=== PATIENT | female | born 1975 | race Caucasian/White ===

== ENCOUNTER 2023-02-01 13:00 | Inpatient (IN) | payer OTHER ==
[2023-01-30 13:45] VITALS: BMI 24.5
[2023-02-08] MEDS ORDERED: GABAPENTIN 300 MG CAPSULE ONE (11:44)
[2023-02-08] MEDS ORDERED: PHENAZOPYRIDINE HCL 100 MG TABLET (FP) ONE (11:44)
[2023-02-08] MEDS ORDERED: ceFAZolin SODIUM 1 GM VIAL ONE (11:45)
[2023-02-08] MEDS ORDERED: PROPOFOL 20 ML ONE (12:56)
[2023-02-08] MEDS ORDERED: ROCURONIUM BROMIDE 50 MG/5 ML SYRINGE ONE (12:56)
[2023-02-08] MEDS ORDERED: MIDAZOLAM HCL 2 MG/2 ML SINGLE DOSE VIAL ONE (12:56)
[2023-02-08] MEDS ORDERED: BUPIVACAINE LIPOSOME/PF (EXPAREL) 266 MG/20 ML VIAL ONE (12:58)
[2023-02-08] MEDS ORDERED: BUPIVACAINE HCL/PF 0.25% (2.5MG/ML) 10 ML VIAL ONE (12:58)
[2023-02-08] MEDS ORDERED: TRANEXAMIC ACID 1000 MG/10 ML VIAL IVPUSH ONE (13:00)
[2023-02-08] MEDS ORDERED: CEFAZOLIN 2 GM in DEXTROSE 5%-WATER - 100 ML IVPB ONE (13:00)
[2023-02-08] MEDS ORDERED: ACETAMINOPHEN 1000 MG/100 ML BAG IVPB ONE (13:00)
[2023-02-08] MEDS ORDERED: GABAPENTIN 300 MG CAPSULE PO ONE (13:00)
[2023-02-08] MEDS ORDERED: PHENAZOPYRIDINE HCL 100 MG TABLET (FP) PO ONE (13:00)
[2023-02-08] MEDS ORDERED: ceFAZolin SODIUM 1 GM VIAL IVPB ONE (13:50)
[2023-02-08] MEDS ORDERED: TRANEXAMIC ACID 1000 MG/10 ML VIAL ONE (13:57)
[2023-02-08] MEDS ORDERED: HYDROmorphone HCl 2 MG/ML VIAL ONE (15:07)
[2023-02-08] MEDS ORDERED: NEOSTIGMINE METHYLSULFATE 0.5 MG/1 ML - 10 ML MDV ONE (15:35)
[2023-02-08] MEDS ORDERED: GLYCOPYRROLATE 0.2 MG/1 ML VIAL ONE (15:35)
[2023-02-08] MEDS ORDERED: ONDANSETRON 4 MG/2 ML VIAL ONE (15:35)
[2023-02-08] MEDS ORDERED: KETOROLAC TROMETHAMINE 30 MG/1 ML VIAL IVPUSH PRN (16:04)
[2023-02-08] MEDS: ACETAMINOPHEN 1000 MG/100 ML BAG IVPB SCH ×2 (16:23→21:57)
[2023-02-08] MEDS ORDERED: ACETAMINOPHEN INJECTION 100 ML IVPB ONE (16:45)
[2023-02-08] MEDS ORDERED: oxyCODONE HCL 5 MG TABLET PO PRN (17:22)
[2023-02-08] MEDS: SODIUM CHLORIDE 1,000 ML IV SCH (19:15)
[2023-02-08] MEDS: DOXYCYCLINE INJECTION 100 MG in DEXTROSE 5%-WATER 100 ML IVPB SCH (22:12)
[2023-02-08 22:49] VITALS: RESP 18
[2023-02-09] MEDS: ACETAMINOPHEN 1000 MG/100 ML BAG IVPB SCH ×4 (04:34→22:36)
[2023-02-09] MEDS: SODIUM CHLORIDE 1,000 ML IV SCH ×2 (06:00→17:44)
[2023-02-09 08:34] LABS: HEMATOCRIT 31.1 % (32.4-45.2); HEMOGLOBIN 10.4 GM/dL (10.7-15.3); MCH 30.9 pg (25.7-33.7); MCHC 33.5 g/dl (32.0-36.0); MEAN CELL VOLUME 92.3 fl (80-96); MEAN PLT VOLUME 8.7 fl (7.5-11.1); PLATELET COUNT 155 10^3/uL (134-434); RBC 3.37 M/mm3 (3.60-5.2); RDW 13.8 % (11.6-15.6); WHITE BLOOD COUNT 10.9 K/mm3 (4.0-10.0)
[2023-02-09] MEDS: DOXYCYCLINE INJECTION 100 MG in DEXTROSE 5%-WATER 100 ML IVPB SCH ×2 (09:17→22:55)
[2023-02-09] MEDS: ENOXAPARIN NA (PORCINE) 40 MG/0.4 ML DISP.SYRIN SQ SCH (09:18)
[2023-02-09 11:41] LABS: HIV INTERPRETATION NEGATIVE (NEGATIVE)
[2023-02-09] MEDS ORDERED: METOCLOPRAMIDE HCL INJECTION 10 MG/2 ML VIAL IVPUSH PRN (17:23)
[2023-02-10] MEDS: ACETAMINOPHEN 1000 MG/100 ML BAG IVPB SCH ×3 (04:28→15:33)
[2023-02-10] MEDS: SODIUM CHLORIDE 1,000 ML IV SCH (04:31)
[2023-02-10 08:30] VITALS: BP 98/54; PULSE 100; TEMP 98.5
[2023-02-10] MEDS ORDERED: ONDANSETRON 4 MG/2 ML VIAL IVPUSH PRN (08:45)
[2023-02-10] MEDS ORDERED: IRON SUCROSE INJECTION 200 MG in SODIUM CHLORIDE 90 ML IVPB ONE (08:59)
[2023-02-10] MEDS: DOXYCYCLINE INJECTION 100 MG in DEXTROSE 5%-WATER 100 ML IVPB SCH (09:27)
[2023-02-10] MEDS: ENOXAPARIN NA (PORCINE) 40 MG/0.4 ML DISP.SYRIN SQ SCH (09:31)
== END 2023-02-10 17:23 | disposition home or self-care (01) | DRG 519 ==
LOC: J2C 02-08 05:27 → J3W 02-08 19:47
PROVIDERS: ADMIT Obstetrics & Gynecology; ATTEND Obstetrics & Gynecology
PROC: 0UB90ZZ Excision of Uterus, Open Approach (ICD-10-PCS; principal; 2023-02-08 13:00)
DX: D25.9 Leiomyoma of uterus, unspecified (principal); N92.0 Excessive and frequent menstruation with regular cycle; R10.2 Pelvic and perineal pain
CPT/HCPCS: 36415; 81025; 84460; 85027; 86803; 86850; 86900; 86901; 87340; 87389; 88305-TC; 94010; 94760

== ENCOUNTER 2023-02-17 12:36 | Emergency (ER) | payer OTHER ==
[2023-02-17 12:48] VITALS: BMI 24.0
[2023-02-17 18:23] VITALS: BP 94/59; PULSE 85; RESP 16; TEMP 98
== END 2023-02-17 18:09 | disposition home or self-care (01) ==
LOC: JER 12:36
DX: R60.9 Edema, unspecified (principal); M79.651 Pain in right thigh; M79.652 Pain in left thigh
CPT/HCPCS: 93970-TC; 99284-25